=== PATIENT | female | born 1980 | race Caucasian/White ===

== ENCOUNTER 2017-09-17 17:44 | Emergency (ER) | payer OTHER ==
[~2017-09-17] VITALS: Ht 170.1 cm; Wt 56.7 kg
[~2017-09-17 17:44] MED LIST: ANAPROX DS550 MG PO; AVPAK AZITHROM250 M1 PO; FIORICET 325 MG1 TAB PO; PEN-VEE K500 MG PO; PREDNISONE10 MG PO; SEPTRA DS 800 M1 TAB PO; VICODIN 5/500 505 MG PO
[2017-09-17] MEDS ORDERED: FLONASE ALLERG9.9 ML NAS (17:55)
[2017-09-17] MEDS ORDERED: CLARITIN10 MG PO (17:55)
[2017-09-17] MEDS ORDERED: PREDNISONE10 MG PO (17:55)
[2017-09-17] MEDS ORDERED: ROBITUSSIN DM 105 ML PO (17:55)
== END 2017-09-17 18:38 | disposition home or self-care (01) ==
LOC: ED 17:44
DX: J20.9 Acute bronchitis, unspecified (principal); R03.0 Elevated blood-pressure reading, without diagnosis of hypertension; F17.200 Nicotine dependence, unspecified, uncomplicated; Z88.8 Allergy status to other drugs, medicaments and biological substances

== ENCOUNTER 2018-01-12 03:58 | Emergency (ER) | payer SELFPAY ==
[~2018-01-12] VITALS: Ht 167.6 cm; Wt 54.4 kg
[~2018-01-12 03:58] MED LIST changes: +CLARITIN10 MG PO; +FLONASE ALLERG9.9 ML NAS; +ROBITUSSIN DM 105 ML PO
[2018-01-12] MEDS ORDERED: AMOXICILLIN500 M2 PO (04:30)
[2018-01-12] MEDS ORDERED: Motrin,Rufen800 MG PO (04:30)
== END 2018-01-12 05:02 | disposition home or self-care (01) ==
LOC: ED 03:58
DX: K02.9 Dental caries, unspecified (principal); K04.01 Reversible pulpitis; Z88.8 Allergy status to other drugs, medicaments and biological substances; F17.200 Nicotine dependence, unspecified, uncomplicated

== ENCOUNTER 2019-01-01 13:59 | Emergency (ER) | payer SELFPAY ==
[~2019-01-01] VITALS: Ht 167.6 cm; Wt 49.9 kg
[~2019-01-01 13:59] MED LIST changes: +AMOXICILLIN500 M2 PO; +Motrin,Rufen800 MG PO
[2019-01-01] MEDS ORDERED: SEPTDS PO (14:46)
== END 2019-01-01 14:51 | disposition home or self-care (01) ==
LOC: ED 13:59
DX: S51.851A Open bite of right forearm, initial encounter (principal); F17.200 Nicotine dependence, unspecified, uncomplicated; Z88.8 Allergy status to other drugs, medicaments and biological substances; W57.XXXA Bitten or stung by nonvenomous insect and other nonvenomous arthropods, initial encounter; Y93.89 Activity, other specified; Y92.89 Other specified places as the place of occurrence of the external cause; Y99.8 Other external cause status

== ENCOUNTER 2019-11-09 19:01 | Emergency (ER) | payer SELFPAY ==
[~2019-11-09] VITALS: Ht 167.6 cm; Wt 54.4 kg
[~2019-11-09 19:01] MED LIST changes: +SEPTDS PO
[2019-11-09] MEDS ORDERED: IBU800 MG PO (20:04)
== END 2019-11-09 20:09 | disposition home or self-care (01) ==
LOC: ED 19:01
DX: G56.02 Carpal tunnel syndrome, left upper limb (principal); F32.9 Major depressive disorder, single episode, unspecified; G43.909 Migraine, unspecified, not intractable, without status migrainosus; Z79.899 Other long term (current) drug therapy; Z88.8 Allergy status to other drugs, medicaments and biological substances

== ENCOUNTER 2022-06-24 16:36 | Emergency (ER) | payer BC ==
[~2022-06-24] VITALS: Ht 167.6 cm; Wt 57.6 kg
[~2022-06-24 16:36] MED LIST changes: +IBU800 MG PO
[2022-06-24] MEDS ORDERED: VIBRA-TAB100 MG PO (17:32)
[2022-06-24] MEDS ORDERED: PREDNISONE10 MG PO (17:32)
== END 2022-06-24 18:09 | disposition home or self-care (01) ==
LOC: ED 16:36
DX: J40 Bronchitis, not specified as acute or chronic (principal); Z88.8 Allergy status to other drugs, medicaments and biological substances; Z98.51 Tubal ligation status

== ENCOUNTER 2025-02-16 09:35 | Emergency (ER) | payer BC ==
[~2025-02-16] VITALS: Ht 167.6 cm
[~2025-02-16 09:35] MED LIST changes: +VIBRA-TAB100 MG PO
[2025-02-16] MEDS ORDERED: AVPAK AZITHROM250 M1 PO (09:59)
== END 2025-02-16 10:14 | disposition home or self-care (01) ==
LOC: ED 09:35
DX: J40 Bronchitis, not specified as acute or chronic (principal); F17.290 Nicotine dependence, other tobacco product, uncomplicated; Z88.8 Allergy status to other drugs, medicaments and biological substances

== ENCOUNTER 2025-05-16 14:27 | Emergency (ER) | payer BC ==
[~2025-05-16] VITALS: Wt 59.0 kg
[2025-05-16] MEDS ORDERED: AMOX-CLAV 875-1 EACH PO (14:51)
[2025-05-16] MEDS ORDERED: Acetaminophen/Oxycodone Hydr 7.5 MG/325 MG TABLET PO ONE (14:55)
== END 2025-05-16 15:06 | disposition home or self-care (01) ==
LOC: ED 14:27
DX: K02.9 Dental caries, unspecified (principal); F32.A Depression, unspecified; G43.909 Migraine, unspecified, not intractable, without status migrainosus; Z88.8 Allergy status to other drugs, medicaments and biological substances